=== PATIENT | male | born 1995 | race Caucasian/White ===

== ENCOUNTER 2019-06-23 16:41 | Inpatient (IN) | payer BC ==
--- NOTE | 2019-06-23 16:55 | ED ---
Psychiatric Complaint - HPI Summary HPI Summary: This pt is a 23 y/o male presenting to [facility] via EMS for manic episode today. Pt arrives to the ER in handcuffs after being combative at home. Pt reports he has hx of bipolar disorder and PTSD. He notes he is not currently on any medications and the last time was about 2 years ago. Pt states the medications "made it way worse" and "made him down." Pt currently reports feeling "more content" than he has ever felt in his life. Denies SI thoughts/plan. He denies any other PMHx. Pt denies tobacco use but admits to marijuana use and drinking alcohol 3 out of 5 days. He reports he last smoked marijuana last night, denies marijuana use today. Per father, pt recently moved to the area from [place] "not even a month ago." Father reports pt does not take any medications. Today father states pt was acting out and was aggressive banging on cars. Medications reviewed. Allergies noted. - History Of Current Complaint Time Seen by Provider: 06/23/19 16:48 Hx Obtained From: Patient, Family/Drain Cleaner Plumber - Father Onset/Duration: Lasting Hours Timing: Hours Severity Initially: Moderate Severity Currently: Mild Character: Manic Aggravating Factor(s): Nothing Alleviating Factor(s): Nothing Related History: Positive For: Prior Psychiatric Issues Has Suicidal: Denies: Thoughts, With A Plan - Allergies/Home Medications Allergies/Adverse Reactions: Allergies Allergy/AdvReac Type Severity Reaction Status Date / Time No Known Allergies Allergy Verified 06/23/19 16:54 Home Medications: Home Medications NK [No Home Medications Reported] 06/23/19 [History Confirmed 06/23/19] PMH/Surg Hx/FS Hx/Imm Hx Endocrine/Hematology History: Denies: Hx Diabetes Cardiovascular History: Denies: Hx Hypertension Psychiatric History: Reports: Hx Post Traumatic Stress Disorder, Hx Bipolar Disorder Infectious Disease History: No Infectious Disease History: Denies: Traveled Outside the [place] in Last 30 Days - Family History Known Family History: Positive: Non-Contributory - Social History Alcohol Use: Weekly Substance Use Type: Reports: Marijuana Smoking Status (MU): Never Smoked Tobacco Review of Systems Negative: Fever Psychological: Other - POSITIVE: manic, combative Negative: Other - NEGATIVE: SI All Other Systems Reviewed And Are Negative: Yes Physical Exam - Summary Physical Exam Summary: General: Well appearing, no distress Cardiovascular: Skin is well perfused Pulmonary: No respiratory distress, no tachypnea Abdomen: Non-distended Skin: Warm, pink, dry Psych: Tangential thought process, pressured speech, looking around the room. Neuro: A&Ox3 Triage Information Reviewed: Yes Vital Signs On Initial Exam: Initial Vitals Temp Pulse Resp BP Pulse Ox 98.4 F 123 19 139/86 98 06/23/19 16:45 06/23/19 16:45 06/23/19 16:45 06/23/19 16:45 06/23/19 16:45 Vital Signs Reviewed: Yes Procedures - Sedation Patient Received Moderate/Deep Sedation with Procedure: No Diagnostics - Vital Signs Vital Signs Temp Pulse Resp BP Pulse Ox 06/23/19 16:45 98.4 F 123 19 139/86 98 - Laboratory Result Diagrams: 06/23/19 17:08 06/23/19 17:08 Lab Statement: Any lab studies that have been ordered have been reviewed, and results considered in the medical decision making process. Course/Dx - Course Assessment/Plan: Pt is medically cleared. He is waiting for a mental health evaluation. Pt will be signed out to Dr. Sandoval pending MHE. - Differential Dx/Clinical Impression Provider Diagnosis: Bipolar disorder, Manic behavior Discharge ED - Sign-Out/Discharge Documenting (check all that apply): Sign-Out Patient Signing out patient TO: Lynda Sandoval - pending MHE. - Discharge Plan Condition: Stable Referrals: No Primary Care Phys,NOPCP [Primary Care Provider] - - Billing Disposition and Condition Condition: STABLE - Attestation Statements Document Initiated by Scribe: Yes Documenting Scribe: Saniya Thomas Provider For Whom Shainaibe is Documenting (Include Credential): Ryan Colon MD Scribe Attestation: Saniya Riley, scribed for Ryan Colon MD on 06/23/19 at 2143. Scribe Documentation Reviewed: Yes Provider Attestation: The documentation as recorded by the Saniya pearl accurately reflects the service I personally performed and the decisions made by me, Ryan Colon MD Status of Scribe Document: Viewed
[2019-06-23 17:19] LABS: ABS Eosinophils 0.7 10^3/ul (0-0.6); ABS Lymphocytes 1.1 10^3/ul (1.0-4.8); ABS Monocytes 1.1 10^3/ul (0-0.8); ABS Neutrophils 7.9 10^3/ul (1.5-7.7); Eosinophil % 6.7 %; Hematocrit 44 % (42-52); Hemoglobin 15.4 g/dL (14.0-18.0); Lymphocyte % 9.9 %; Mean Corpuscular HGB Conc 35 g/dL (31-36); Mean Corpuscular Hemoglobin 31 pg (27-31); Mean Corpuscular Volume 89 fL (80-94); Mean Platelet Volume 8.6 fL (7.4-10.4); Platelet Count 227 10^3/uL (150-450); Red Blood Count 4.97 10^6 /uL (4.18-5.48); Red Cell Distribution Width 13 % (10-15); White Blood Count 10.8 10^3/uL (3.5-10.8)
[2019-06-23 17:37] LABS: ALT 27 U/L (7-52); AST 35 U/L (13-39); Albumin 4.6 g/dL (3.2-5.2); Albumin/Globulin Ratio 1.7 (1-3); Alkaline Phosphatase 62 U/L (34-104); Anion Gap 7 mmol/L (2-11); BUN/Creatinine Ratio 14.7 (8-20); Blood Urea Nitrogen 16 mg/dL (6-24); CO2 Carbon Dioxide 28 mmol/L (22-32); Calcium 9.6 mg/dL (8.6-10.3); Chloride 103 mmol/L (101-111); EGFR African American 103.3 (>60); EGFR Non-African American 85.4 (>60); Globulin 2.7 g/dL (2-4); Glucose 102 mg/dL (70-100); Potassium 3.5 mmol/L (3.5-5.0); Sodium 138 mmol/L (135-145); Total Protein 7.3 g/dL (6.4-8.9)
[2019-06-23 17:47] LABS: Acetaminophen < 15 mcg/mL; Alcohol < 10 mg/dL (<10); Salicylate < 2.50 mg/dL (<30)
[2019-06-23 17:54] LABS: Urine Appearance Cloudy; Urine Bacteria Absent (Absent); Urine Bilirubin Negative (Negative); Urine Blood Negative (Negative); Urine Color Yellow; Urine Glucose Negative (Negative); Urine Ketones Trace (Negative); Urine Nitrite Negative (Negative); Urine Protein 1+(30 mg/dL) (Negative); Urine Red Blood Cell Absent (Absent); Urine Specific Gravity 1.023 (1.010-1.030); Urine Urobilinogen Negative (Negative); Urine White Blood Cell Absent (Absent)
[2019-06-23 18:01] LABS: TSH (Thyroid Stimulating Horm) 1.38 mcIU/mL (0.34-5.60)
[2019-06-23 18:01] LABS: Urine Benzodiazepine Screen None Detected (None Detect); Urine Opiates Screen None Detected (None Detect)
[2019-06-23] MEDS ORDERED: LORazepam TAB(*) 1 MG PO ONE (19:30)
--- NOTE | 2019-06-23 21:44 | ED ---
Progress - Progress Note Progress Note: This pt is a sign out from Dr. Colon to Dr. Sandoval at shift change 2200 pending a MHE and disposition. Pt had no complications during the shift and will be signed out to Dr. Mcguire at shift change 0700 06/24/19. Course/Dx - Course Course Of Treatment: This pt is a sign out from Dr. Colon to Dr. Sandoval at shift change 2200 06/23/19 pending a MHE and disposition. Pt had no complications during the shift and will be signed out to Dr. Mcguire at shift change 0700 06/24/[address] Sandoval pending a MHE and disposition. - Diagnoses Provider Diagnoses: Bipolar disorder, Manic behavior Discharge ED - Sign-Out/Discharge Documenting (check all that apply): Sign-Out Patient, Receiving Sign-Out Signing out patient TO: Alfonso Mcguire Receiving patient FROM: Eric Colon - Discharge Plan Condition: Stable Referrals: No Primary Care Phys,NOPCP [Primary Care Provider] - - Billing Disposition and Condition Condition: STABLE - Attestation Statements Document Initiated by Scribe: Yes Documenting Scribe: Orlando Anders Provider For Whom Scribe is Documenting (Include Credential): Lynda Sandoval MD Scribe Attestation: Orlando Riley, scribed for Lynda Sandoval MD on 06/24/19 at 0656. Scribe Documentation Reviewed: Yes Provider Attestation: The documentation as recorded by the Orlando pearl accurately reflects the service I personally performed and the decisions made by Lynda marques MD Status of Scribe Document: Viewed
--- NOTE | 2019-06-24 07:24 | ED ---
Progress - Progress Note Progress Note: The patient is a sign-out from Dr. Lynda Sandoval MD, to Dr. Alfonso Mcguire MD, at change of shift at 0700 on 06/24/19, pending mental health evaluation and disposition following mental health hold. 1050 - Lizandro Sesay, mental health manager lsw, reports that Dr. Dietz, psychiatry , has evaluated the patient and has decided that the most appropriate plan for treatment is involuntary admission with diagnosis of psychosis NOS Course/Dx - Course Course Of Treatment: The patient is a sign-out from Dr. Lynda Sandoval MD, to Dr. Alfonso Mcguire MD, at change of shift at 0700 on 06/24/19, pending mental health evaluation and disposition following mental health hold. After Dr. Dietz , psychiatry, has evaluated and reviewed the patient's case, Lizandro Sesay from mental health reports that the patient is being involuntarily admitted with a diagnosis of pyschosis NOS. - Diagnoses Provider Diagnoses: Bipolar disorder, Manic behavior, Unspecified psychosis - Provider Notifications Discussed Care Of Patient With: Lizandro Sesay - mental health manager lsw Time Discussed With Above Provider: 10:50 Instructed by Provider To: Admit As Inpatient - Lizandro reports that Dr. Dietz is involuntarily admitting the patient with psychosis NOS. Discharge ED - Sign-Out/Discharge Documenting (check all that apply): Patient Departure - Patient is involuntarily admitted by Dr. Dietz., Receiving Sign-Out Receiving patient FROM: Lynda Sandoval - Patient is a sign-out from Dr. Lynda Sandoval MD, at change of shift at 0700 on 06/24/19, pending hold with MHE and disposition. - Discharge Plan Condition: Stable [place] [place] Disposition and Condition Condition: STABLE Disposition[place] [facility] [place] Attestation Statements Document Initiated by Scribe: Yes Documenting Scribe: Swathi Kenyon Provider For Whom Nataly is Documenting (Include Credential): Dr. Alfonso Mcguire MD Scribe Attestation: Swathi Riley scribed for Dr. Alfonso Mcguire MD on 06/24/19 at 1902. Scribe Documentation Reviewed: Yes Provider Attestation: The documentation as recorded by the jennaibSwathi pennington accurately reflects the service I personally performed and the decisions made by me, Dr. Alfonso Mcguire MD Status of Scribe Document: Viewed Procedures - Sedation Patient Received Moderate/Deep Sedation with Procedure: No
[2019-06-24] MEDS ORDERED: chlorproMAZINE TAB* 100 MG PO PRN (10:31)
[2019-06-24] MEDS ORDERED: LORazepam TAB(*) 1 MG PO PRN (10:32)
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
[2019-06-25] MEDS: risperiDONE TAB* 1 MG PO SCH (23:00)
[2019-06-25] MEDS: Lithium Carbonate TAB* 300 MG PO SCH (23:00)
[2019-06-26] MEDS: Lithium Carbonate TAB* 300 MG PO SCH ×2 (07:56→21:25)
[2019-06-26] MEDS: risperiDONE TAB* 1 MG PO SCH (21:25)
[2019-06-27] MEDS: Lithium Carbonate TAB* 300 MG PO SCH ×2 (08:54→21:12)
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
[2019-06-27] MEDS: Paliperidone ER TAB* 6 MG TAB.ER PO SCH (21:12)
[2019-06-28] MEDS: Lithium Carbonate TAB* 300 MG PO SCH ×2 (09:59→21:16)
--- NOTE | 2019-06-28 10:07 | PN ---
Subjective - Subjective Date of Service: 06/28/19 Service Type: 00165 Hosp care 35 min high complexity Subjective: Nursing Report: Patient was visible on unit, no behavioral incidents. Slept overnight. He is attending group activities. CC: "I do feel better" Patient was seen and evaluated in the common room. The patient reported getting restful sleep 7 hours and that he feels better today because of it. He feels that the medication combination is good for him. He reported having adequate appetite and sleep. The patient reports attending and participating in day groups. Per nursing no behavioral issues or overnight events reported. Patient reported that he is tolerating medications without side effects. Objective - General Observations Appearance: Neat Appears Stated Age: Yes Stature: Thin Posture: WNL Eye Contact: Average Behavior/Activity: Accelerated - Interaction Observations Attitude Towards Examiner: Cooperative Stated Mood: Elevated Affect: Bright Speech Pattern/Tone: Pressured Thought Process: Loose Associations Perception: WNL Thought Content: Preoccupation/Ruminations Hallucination Type: None Delusion Type: None - Cognitive Function Orientation: A&O x 4 Level of Consciousness: Awake - Medication Compliance Cooperative with Inpatient Medication Regimen: Yes - Group Participation Participates in Group Activities: Yes Assessment - Assessment Merits Inpatient Hospitalization: For Immediate Safety Inpatient DSM-V Dx: F31.2 Clinical Impression: 23 y.o. single, white male with an apparent history of bipolar disorder brought in by police on legal status due to disorganized, agitated behavior at his father's house. Plan - Plan Treatment Plan: # Q30 minute observation. Still remains disorganized and tangential # The patient requires psychiatric inpatient admission at this time to assure safety, receive treatment and work toward stabilization. # EKG ordered for risk of QT prolongation of antipsychotic medication. # Collaboration with Social Work # [place] # Continue Invega 6mg qhs # Parents confirmed that they have removed access to firearms # Invega Sustenna 234mg initial IM injection to be given today and booster 156mg on Thursday07/01/19 , with the next due on 07/26/19 # Parents provided collateral consistent with Bipolar I disorder they confirmed that gun from cabin was removed and he has no access to firearms # He plans to return home to live in [place] with parents # Discussed Importance of Social rhythm with Bipolar I disorder #Goals before discharge include: Improve thought process and reduce manic features Tentative Discharge: Thursday Sodium 138 mmol/L (135-145) 06/23/19 17:08 Potassium 3.5 mmol/L (3.5-5.0) 06/23/19 17:08 BUN 16 mg/dL (6-24) 06/23/19 17:08 Creatinine 1.09 mg/dL (0.67-1.17) 06/23/19 17:08 Calcium 9.6 mg/dL (8.6-10.3) 06/23/19 17:08 AST 35 U/L (13-39) 06/23/19 17:08 ALT 27 U/L (7-52) 06/23/19 17:08 Continued Medication Management: Continue Outpt Medication Medications: Current Medications Chlorpromazine HCl (Thorazine Tab*) 100 mg PO Q6H PRN PRN Reason: AGITATION Planada Carbonate (Planada Carbonate Tab*) 450 mg PO BID [facility] Lorazepam (Ativan Tab(*)) 2 mg PO Q4H PRN PRN Reason: ANXIETY Paliperidone (Invega Er Tab*) 6 mg PO 2100 [facility] Last Admin: 06/27/19 21:12 Dose: 6 mg Paliperidone Palmitate (Invega Sustenna*) 234 mg IM ONCE ONE Stop: 06/28/19 11:01 Paliperidone Palmitate (Invega Sustenna*) 156 mg IM ONCE ONE Stop: 07/01/19 13:01 - Discharge Plan Discharge Plan: Inpatient Hospitalization Outpatient Program: Private Clinician(s)
[2019-06-28] MEDS ORDERED: Paliperidone SUSTENNA* 234 MG/1.5 ML IM ONE (11:00)
[2019-06-28] MEDS: Paliperidone ER TAB* 6 MG TAB.ER PO SCH (21:16)
--- NOTE | 2019-06-29 08:09 | PN ---
Subjective - Subjective Date of Service: 06/29/19 Service Type: [id number] Hosp care 35 min high complexity Subjective: Nursing Report: Patient was visible on unit, no behavioral incidents. Slept overnight. He is attending group activities. CC: "Better" Patient was seen and evaluated in the common room. The patient reported he feels safe on the unit and is interacting with peers. He reported having adequate appetite and sleep. The patient reports attending and participating in day groups. Per nursing no behavioral issues or overnight events reported. Patient reported that he is tolerating medications without side effects. He reported that his arm is still sore from the injection yesterday. Objective - General Observations Appearance: Neat Appears Stated Age: Yes Stature: WNL Posture: WNL Eye Contact: Average Behavior/Activity: WNL - Interaction Observations Attitude Towards Examiner: Cooperative Stated Mood: Elevated Affect: Restricted Speech Pattern/Tone: Rambling Thought Process: Disorganized Perception: Reexperiencing Thought Content: Preoccupation/Ruminations Hallucination Type: Denies Delusion Type: Denies - Cognitive Function Orientation: A&O x 4 Level of Consciousness: Awake - Medication Compliance Cooperative with Inpatient Medication Regimen: Yes - Group Participation Participates in Group Activities: Yes Assessment - Assessment Inpatient DSM-V Dx: F31.2 Clinical Impression: 23 y.o. single, white male with an apparent history of bipolar disorder brought in by police on legal status due to disorganized, agitated behavior at his father's house. Plan - Plan Treatment Plan: # Q30 minute observation. Shows improvement in speech and thought organization # The patient requires psychiatric inpatient admission at this time to assure safety, receive treatment and work toward stabilization. # EKG ordered for risk of QT prolongation of antipsychotic medication. # Collaboration with Social Work # [place] # Continue Invega 6mg qhs and d/c tomorrow # Parents confirmed that they have removed access to firearms # Received Invega Sustenna 234mg initial IM injection without complication to be given today and booster 156mg on Thursday07/01/19 , with the next due on 07/26 # Parents provided collateral consistent with Bipolar I disorder they confirmed that gun from cabin was removed and he has no access to firearms # He plans to return home to live in [place] with parents # In process of locating follow up appointment in [place] # Discussed Importance of Social rhythm with Bipolar I disorder #Goals before discharge include: Improve thought process and reduce manic features Tentative Discharge: Thursday Sodium 138 mmol/L (135-145) 06/23/19 17:08 Potassium 3.5 mmol/L (3.5-5.0) 06/23/19 17:08 BUN 16 mg/dL (6-24) 06/23/19 17:08 Creatinine 1.09 mg/dL (0.67-1.17) 06/23/19 17:08 Calcium 9.6 mg/dL (8.6-10.3) 06/23/19 17:08 AST 35 U/L (13-39) 06/23/19 17:08 ALT 27 U/L (7-52) 06/23/19 17:08 Continued Medication Management: Continue Outpt Medication Medications: Current Medications Chlorpromazine HCl (Thorazine Tab*) 100 mg PO Q6H PRN PRN Reason: AGITATION Centenary Carbonate (Centenary Carbonate Tab*) 450 mg PO BID [facility] Last Admin: 06/28/19 21:16 Dose: 450 mg Lorazepam (Ativan Tab(*)) 2 mg PO Q4H PRN PRN Reason: ANXIETY Paliperidone (Invega Er Tab*) 6 mg PO 2100 [facility] Last Admin: 06/28/19 21:16 Dose: 6 mg Paliperidone Palmitate (Invega Sustenna*) 156 mg IM ONCE ONE Stop: 07/01/19 13:01 - Discharge Plan Discharge Plan: Inpatient Hospitalization Outpatient Program: Private Clinician(s)
[2019-06-29] MEDS: Lithium Carbonate TAB* 300 MG PO SCH ×2 (09:08→21:08)
--- NOTE | 2019-06-29 16:55 | PN ---
BSU: Group Therapy Note - Service Type Service Type: [id number] Group Psychotherapy - Medication Education Group: Patient was attentive and participatory in group, and remained in good behavioral control. Patient expressed positive insights regarding relevant treatment interventions. Patient stated understanding of material discussed and had appropriate questions.
[2019-06-29] MEDS: Paliperidone ER TAB* 6 MG TAB.ER PO SCH (21:08)
[2019-06-30 08:45] LABS: HDL Cholesterol 61.1 mg/dL
[2019-06-30] MEDS: Lithium Carbonate TAB* 300 MG PO SCH ×2 (09:06→21:11)
--- NOTE | 2019-06-30 10:31 | PN ---
Subjective - Subjective Date of Service: 06/30/19 Service Type: 63024 Hosp care 35 min high complexity Subjective: Nursing Report: Patient was visible on unit, no behavioral incidents. Slept overnight. He is attending group activities. CC: "Good man Patient was seen and evaluated in the common room. The patient reported he feels safe on the unit and is interacting with peers. He reported having adequate appetite and sleep. The patient reports attending and participating in day groups. Per nursing no behavioral issues or overnight events reported. Patient reported that he is tolerating medications without side effects. Patient reported doing well and looks forward to discharge tomorrow. Objective - General Observations Appearance: Neat Appears Stated Age: Yes Stature: WNL Posture: WNL Eye Contact: Average Behavior/Activity: Accelerated - Interaction Observations Attitude Towards Examiner: Cooperative Stated Mood: Elevated Affect: Restricted Speech Pattern/Tone: Clear Thought Process: Coherent Perception: WNL Thought Content: WNL Hallucination Type: None Delusion Type: None - Cognitive Function Orientation: A&O x 4 Level of Consciousness: Awake - Medication Compliance Cooperative with Inpatient Medication Regimen: Yes - Group Participation Participates in Group Activities: Yes Assessment - Assessment Merits Inpatient Hospitalization: For Immediate Safety Inpatient DSM-V Dx: F31.2 Clinical Impression: 23 y.o. single, white male with an apparent history of bipolar disorder brought in by police on . legal status due to disorganized, agitated behavior at his father's house. Plan - Plan Treatment Plan: # Q30 minute observation with staff pass. Shows improvement in speech and thought organization # The patient requires psychiatric inpatient admission at this time to assure safety, receive treatment and work toward stabilization. # EKG ordered for risk of QT prolongation of antipsychotic medication. # Collaboration with Social Work # [place] # Discontinue Invega PO # Received Invega Sustenna 234mg initial IM injection without complication to be given today and booster 156mg on Thursday07/01/19 , with the next due on 07/26 # Parents provided collateral consistent with Bipolar I disorder they confirmed that gun from cabin was removed and he has no access to firearms # He plans to return home to live in [place] with parents # [place] # Follow up appointment made in [place] 07/07/19 # Discussed Importance of Social rhythm with Bipolar I disorder #Goals before discharge include: Improve thought process and reduce manic features Tentative Discharge: Thursday06/30/19 06/30/19 08:13 08:13 Hemoglobin A1c 5.2 Triglycerides 49 Cholesterol 117 LDL Cholesterol 46 HDL Cholesterol 61.1 Continued Medication Management: Continue Outpt Medication Medications: Current Medications Chlorpromazine HCl (Thorazine Tab*) 100 mg PO Q6H PRN PRN Reason: AGITATION Orick Carbonate (Orick Carbonate Tab*) 450 mg PO BID [facility] Last Admin: 06/30/19 09:06 Dose: 450 mg Lorazepam (Ativan Tab(*)) 2 mg PO Q4H PRN PRN Reason: ANXIETY Paliperidone Palmitate (Invega Sustenna*) 156 mg IM ONCE ONE Stop: 07/01/19 13:01 - Discharge Plan Discharge Plan: Inpatient Hospitalization Outpatient Program: Private Clinician(s)
[2019-07-01 08:59] VITALS: BP 150/89
[2019-07-01] MEDS: Lithium Carbonate TAB* 300 MG PO SCH (10:00)
--- NOTE | 2019-07-01 10:16 | DS ---
Subjective - Subjective Service Types: [address] [facility] Day Mgmt complex over 30 min Discharge Date: 07/01/19 Subjective: CC: " I am better" Patient looks forward to going back home and getting a job. The patient was seen and evaluated before discharge today. The patient reported having adequate appetite and sleep. The patient reports attending and participating in day groups. Per nursing no behavioral issues or overnight events reported. Patient reported tolerating medications without side effects. - - Identify Employment Status: Employed Hx Psychiatric Hospitalization: Yes - about one year ago for question of bipolar Prior Psychiatric Diagnosis: bipolar disorder Arrived to Hospital Via: Law Enforcement History - Objective HPI: 23 year old single white male who professes to be ignorant about why he is here , attributing it to his father panicking, driving one hundred miles, and convincing the police to put him in handcuffs and bring him to the hospital. He volunteers little in the way of history but eventually said that he had cuts ; when questioned he admitted to breaking a window but says that he could not remember how. 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 He has a burn on his left forearm which looks like a cooking burn but he says that he cannot remember how he got that either. From the ER note: "This pt is a 23 y/o male presenting to [facility] via EMS for manic episode today. Pt arrives to the ER in handcuffs after being combative at home. Pt reports he has hx of bipolar disorder and PTSD. He notes he is not currently on any medications and the last time was about 2 years ago. Pt states the medications "made it way worse" and "made him down." Pt currently reports feeling "more content" than he has ever felt in his life. Denies SI thoughts/plan. He denies any other PMHx. Pt denies tobacco use but admits to marijuana use and drinking alcohol 3 out of 5 days. He reports he last smoked marijuana last night, denies marijuana use today. Per father, pt recently moved to the area from [place] "not even a month ago." Father reports pt does not take any medications. Today father states pt was acting out and was aggressive banging on cars. " I am not able to clarify history from the father because phone did not answer and there was no voice mail. The patient denies suicidal history or history of psychosis. He eventually said that he was hospitalized sometime last year with what "my parents thought was a manic episode" and took "an antipsychotic and then a combination of antipsychotic and antidepressant" which made me a zombie. Denies legal history. High school graduate but could not do college; felt courses were too simple for him. Denies drug use except marijuana and using LSD three times in distant past. Has put in request for a court hearing. Past Medical History: mild concussion age 15, denies allergies, physical in ER was normal, labs only notable for positive THC in urine Exam Appearance: Well Developed/Nourished, Healthy Appearing Hygiene: Normal Grooming: Well Kept Psychomotor Activities: Abnormal-Increased Exhibits Abnormal Movement: No Attitude and Relatedness: Superficially Cooperative Eye Contact: Fair - Speech Quality: Pressured Latencies: Short Quantity: Copious Patient's Decription of Mood: "Great" Observed Affect: Euphoric Affect Consistent with: Euphoria Patient's Thought Process: Circumstantial Thought Content: No Passive Wish, No Suicidal Planning, No Homicidal Ideation, No Paranoid Ideation Experiencing Hallucinations: No, Sensorium is Clear Type of Hallucinations: Visual: No, Auditory: No, Command: No Orientation: No Intact, No Orientated to Time, No Orientated to Place, No Orientated to Person Impulse Control: Tenuous Insight and Judgement: Poor Impression - Impression Clinical Impression: From history this best fits a mild manic episode; however, current episode information is by report. Patient himself admits to prior hospitalization, denies family history. I have call in to father to confirm and gather more information. Given the information gathered at admission he is still a risk to harm himself and should be retained at this time. He does not want medication, seeing no need for it or for psychiatric treatment. Given the lack of history, psychological testing can be helpful. Can maintain on 15 minute checks on the locked unit at this time. Inpatient DSM-V Dx: F31.1 Diagnosis on Discharge: Bipolar I disorder recent manic episode, in partial remission. Cannabis use disorder. Condition at the time of discharge: At the time of discharge patient showed improvement of sleep and appetite. The patient was not a danger to self or others. The patient denied suicidal ideation, intent or plan. The patient denied homicidal targets, ideation, intent or plan. This patient participated in psychosocial rehabilitation and gained some insight into problems. The patient gained insight into mental illness, triggers, and treatment. The patient took medication as prescribed. The patient denied side effects of medication and objective signs of side effects were not evident. Therapy Resources were offered to the patient. Patient was given a supply of prescriptions at the time of discharge. The patient plans to attend follow up care with the follow up arrangements that were discussed and put in place. Patient was asked to keep appointments as scheduled, take medication as prescribed, have routine follow up care with their primary care physician and refrain from any use of alcohol or drugs. Objective - General Observations Appearance: Neat Appears Stated Age: Yes Stature: WNL Posture: WNL Eye Contact: Average Behavior/Activity: WNL - Interaction Observations Attitude Towards Examiner: Cooperative Stated Mood: Euthymic Affect: Full Speech Pattern/Tone: Clear Thought Process: Coherent Perception: WNL Thought Content: WNL Hallucination Type: None Delusion Type: None - Cognitive Function Orientation: A&O x 4 Level of Consciousness: Awake - Medication Compliance Cooperative with Inpatient Medication Regimen: Yes - Group Participation Participates in Group Activities: Yes Treatment Course & Assessment Clinical Course & Impression: Hospital course part A: 23 y.o. single, white male with an apparent history of bipolar disorder brought in by police on legal status due to disorganized, agitated behavior at his father's house. Hospital course part B: Labs ordered included CBC, CMP, UDS, TSH, HBA1c, TSH, Toxicology screen, Urine analysis, and lipid profile. Labs were reviewed and did not require the need for further evaluation. Vital signs were monitored during the course of admission. EKG ordered for risk of QT prolongation of antipsychotic medication. The patient was admitted to the adult behavioral unit and placed on 15 minute check for safety. At a later time the patient was on Q30 minute observation and staff pass privileges. With those limits being extended, patient was safe on all checks and there were no occurrence of behavioral incidents. The patient did well on the unit and went to groups. Interacted with peers had adequate sleep and regular appetite. Tolerated medication changes without side effects. Group therapy and services were offered. The risks, benefits, and alternative treatment options were discussed as well as of the risks of refusing treatment. Treatment associated risks discussed. After this discussion made an acknowledgement of this understanding. Follow up care appointments were put in place. The importance of monitoring for metabolic changes was discussed and acknowledgement of this understanding was made. The patient was informed not to abruptly stop or start new medications before consulting with a medical professional. Improvements in patient from the time of admission include: Improved affect, sleep and decrease in anxiety. The patient expressed readiness for discharge home. The patient presents with a broader range of affect, and the absence of depressed mood, delusions, perceptual disturbance. The patient denied suicidal and or homicidal ideation intent or plan. Overall, the patient responded well to inpatient treatment as evidenced by their report of strengthening of coping mechanisms, reduced distress, and more positive outlook on circumstances. Of note there was an improvement of recognizing how emotional state can effect mood and behavior. Safety precautions were put in place which included involving the patient and their family to closely monitor for changes in mental state. In addition, implementing follow up care, screening for the need to remove/securing firearms , weapons and stockpile of medications. Patient/ family instructed to immediately call 911 should any safety concerns arise. AIMS was performed and insignificant for involuntary movement disorders. The patient was advised of the 24 hour / 7 days a week availability of the emergency room and to call 911 in the event of an emergency such as being suicidal and/ or homicidal. The patient was informed of the contact information for [facility], Suicide Prevention and Crisis Services, National Suicide Prevention Lifeline, [facility], Alcoholics Anonymous, and [facility]. [place] level was measured and 0.22. He tolerated medications and was advised about the importance of monitoring medication levels after leaving the hospital. Medications started included lithium 300mg BID and increased to 450mg BID for mood stabilization. He was tolerated on oral invega 6mg at nighttime before given long acting injection of invega. Oral Invega was discontinued and He received Invega Sustenna 234mg initial IM injection without complication and booster 156mg on Thursday07/01/19 and next due on 07/26/19 Patient was informed of and offered substance abuse/ Alcohol cessation resources and declined. Family meeting took place before discharge. The family confirmed that the patient is at their baseline. At this time both the patient and family are eager for discharge and are in agreement with the discharge plan set forth by the treatment team and can safely receive care in the less restrictive outpatient setting. They were advised on how the days following discharge can be a vulnerable period and to look out for warning signs associated with decompensation and progression of mental illness. They were notified of the resources available in the event these situations arise and confirmed that the patient has no access to firearms or stockpiles of medications. Patient showed rapid treatment response and was engaged in treatment. Follow up care clinic informed of long acting injection and plan to continue that treatment. Patient was no longer disorganized, less pressured speech and improved thought organization. Towards the end of the course of hospitalization was able to meaningfully engage in the resources available. Patient was not assaultive or a behavioral problem during the course of admission. The patient showed improvement of hygiene and was able to carry out activities of daily living. Patient will be discharged to live at home. Follow up appointment with his PCP and [facility]. Patient informed of follow up appointment times. See more details for follow up care in the discharge plan. Risk factors were mitigated by establishing the patients baseline with close contacts and arranging a family meeting. Implementing precautionary safety measures by confirming no stockpiles of medications and no access to firearms , providing mental health treatment, offering substance abuse resources, substance abuse therapy groups, stabilization of manic features, arrangement of outpatient continuation of care, as well as provided a supportive care environment and therapy resources during the course of hospitalization. Safety plan was reviewed and discussed with the patient. Tailored treatment plan to provide the best chance for medication compliance. Parents plan to participate in managing medications. Parents confirmed that firearms were removed from his access. [place] safe act completed. Risk factors: , single, history of mental illness. History of alcohol and cannabis use. Protective factors: Currently no suicidal ideation, intent or plan. No prior suicide attempts. Motivated about recovery and treatment. Has social/ family support system. No history of service. Currently no feelings of hopelessness, not in an occupation of social isolation, doesnt have multiple medical conditions, no family history of suicide, doesnt have access to firearms. Doesnt have command hallucinations and or psychotic features at this time. Not an anniversary of a loss of a loved one. No changes in relationship status, housing, job, or school. Currently future orientated. Patient engaged in treatment and compliant with medication. Sodium 138 mmol/L (135-145) 06/23/19 17:08 Potassium 3.5 mmol/L (3.5-5.0) 06/23/19 17:08 BUN 16 mg/dL (6-24) 06/23/19 17:08 Creatinine 1.09 mg/dL (0.67-1.17) 06/23/19 17:08 Hemoglobin A1c 5.2 % (4.0-5.6) 06/30/19 08:13 Calcium 9.6 mg/dL (8.6-10.3) 06/23/19 17:08 AST 35 U/L (13-39) 06/23/19 17:08 ALT 27 U/L (7-52) 06/23/19 17:08 Triglycerides 49 mg/dL 06/30/19 08:13 Cholesterol 117 mg/dL 06/30/19 08:13 LDL Cholesterol 46 mg/dL 06/30/19 08:13 Merits Inpatient Hospitalization: No Clear for Discharge: Adequate Clinical Respons Inpatient DSM-V Dx: F31.2 Discharge Planning - Discharge Planning Discharge Plan: Outpatient Follow Up Outpatient Program: Private Clinician(s) Recommendations for Continuing Care: Medication Management Medications: Current Medications [place] Carbonate ([place] Carbonate Tab*) 450 mg PO BID GABBY Last Admin: 06/30/19 21:11 Dose: 450 mg Lorazepam (Ativan Tab(*)) 2 mg PO Q4H PRN PRN Reason: ANXIETY Paliperidone Palmitate (Invega Sustenna*) 156 mg IM ONCE ONE Stop: 07/01/19 13:01 Discharge Planning: Prescriptions provided for discharge [x] Yes [] No Follow up care details as per social work arrangements. Patient response to discharge plan: [x] eager for discharge [] agreeable with discharge plan [] ambivalent about discharge [] disagrees with discharge today
[2019-07-01] MEDS ORDERED: Paliperidone SUSTENNA* 156 MG/1 ML IM ONE (13:00)
== END 2019-07-01 11:48 | disposition home or self-care (01) | DRG 753 ==
LOC: ED 16:41 → BSU 06-24 10:30
PROVIDERS: ADMIT Psychiatry & Neurology Psychiatry; ATTEND Psychiatry & Neurology Psychiatry
PROC: GZHZZZZ Group Psychotherapy (ICD-10-PCS; principal; 2019-06-29)
DX: F31.2 Bipolar disorder, current episode manic severe with psychotic features (principal); F43.10 Post-traumatic stress disorder, unspecified; F12.90 Cannabis use, unspecified, uncomplicated; T22.012A Burn of unspecified degree of left forearm, initial encounter; Z72.89 Other problems related to lifestyle
CPT/HCPCS: 36415; 80053; 80061; 80178; 80307; 80320; 80329; 81003; 81015; 83036; 84443; 85025; 90853; 99222; 99231; 99233; 99238; 99285; A9270-GY; G0480